=== PATIENT | female | born 1985 | race Caucasian/White ===

== ENCOUNTER 2021-09-03 15:49 | Inpatient (IN) ==
[2021-09-03] MEDS ORDERED: LABETALOL HCL 100 MG TAB PO STA (15:59)
[2021-09-03 16:22] LABS: Hematocrit (blood only) 37.9 % (37-47); Hemoglobin 12.9 g/dL (12.0-16.0); Mean Corpuscular Hemoglobin 30.6 pg (25-34); Mean Corpuscular Volume 89.8 fL (80-100); Mean Platelet Volume 10.8 fL (7.4-10.4); Platelet Count 295 K/uL (130-400); RDW Coefficient of Variation 13.3 % (11.5-14.5); RDW Standard Deviation 43.3 fL (36.4-46.3); Red Blood Count 4.22 M/uL (4.2-5.4); White Blood Count 10.65 K/uL (4.8-10.8)
[2021-09-03 16:41] LABS: Basophils # (auto) 0.02 K/uL (0-0.2); Basophils % (auto) 0.2 %; Eosinophils # (auto) 0.13 K/uL (0-0.5); Eosinophils % (auto) 1.2 %; Immature Granulocytes # (auto) 0.04 K/uL (0.00-0.02); Immature Granulocytes % (auto) 0.4 %; Lymphocytes # (auto) 2.52 K/uL (1.2-3.4); Lymphocytes % (auto) 23.7 %; Monocytes # (auto) 0.89 K/uL (0.11-0.59); Monocytes % (auto) 8.4 %; Neutrophils # (auto) 7.05 K/uL (1.4-6.5); Neutrophils % (auto) 66.1 %
[2021-09-03 17:02] LABS: Albumin Globulin Ratio 1.2 (0.9-2); Albumin Level 3.4 gm/dl (3.4-5.0); BUN Creatinine Ratio 14.3 (10-20); Bilirubin,Total 0.4 mg/dl (0.2-1.0); Calcium 8.8 mg/dl (8.5-10.1); Creatinine Clr Calc Pharmacy 140.3 ml/min; Est GFR (African American) 128.3 ml/min; Est GFR (Non-African American) 110.7 ml/min; Globulin 2.8 gm/dl (2.5-4.0); Potassium 3.8 mmol/L (3.5-5.1); Total Protein 6.2 gm/dl (6.0-8.3)
--- NOTE | 2021-09-03 17:33 | History & Physical Report ---
Date of Service September 03, 2021 Assessment & Plan (1) Obesity: (2) Gestational diabetes requiring insulin: (3) Elevated blood pressure complicating in second trimester, antepartum: Plan: 36-year-old -0-1-2 at 37 weeks and 4 days of gestation presenting with elevated blood pressures, initially in severe range, no protein, normal labs and asymptomatic, heart rate reassuring, Cervix unfavorable, GBS positive, Discussed the findings and recommended induction of labor at term due to blood pressures in severe ranges responded to oral labetalol, patient understands and agrees with plan. Plan to admit, monitor blood pressures closely, antihypertensives, magnesium seizure prophylaxis if needed, Cervidil for cervical ripening, penicillin for GBS, All questions were answered. History of Present Illness Chief Complaint: Sent from office for elevated BP Primary Care Provider: Nicole Pedraza MD A 36-year-old -0-1-2 at 37 weeks and 4 days of gestation who was in the office for routine NST tests for gestational diabetes, on insulin. Her blood pressure was 158/90 and her urine showed no protein. She was asymptomatic and was sent here for further blood pressure checks and blood work. She denies headache, change in her vision, nausea vomiting, epigastric or right upper quadrant pain, chest pain or shortness of breath, leg pain. She denies contractions, leakage of fluid or vaginal bleeding. She reports good movements. Her has been complicated by, 1. AMA, 2. Obesity during , 3. GDM A2, 4. Elevated blood pressures, 5. GBS+ Upon presentation here she was about 10 minutes and blood pressures were taken. There were elevated severe range 170s over 100s but she was asymptomatic. She was given 1 dose of oral 100 milligrams of labetalol her blood pressures came down to 150s over 90s. Her labs are within normal limits including platelets count, liver enzymes and creatinine. Allergies Allergy/AdvReac Type Severity Reaction Status Date / Time No Known Allergies Allergy Verified 01/18/20 10:29 Home Medications Medication Instructions Recorded Confirmed Type fluticasone propionate 50 1 spray INTRANASAL DAILY 01/17/20 01/18/20 History mcg/actuation nasal spray,suspension (Flonase Allergy Relief) ibuprofen 600 mg tablet 600 mg PO Q6H #30 tab 01/18/20 09/03/21 Rx aspirin 09/03/21 History insulin detemir U-100 100 unit/mL 20 unit SUBCUT DAILY 09/03/21 09/03/21 History (3 mL) subcutaneous pen [id number] 1 mg tab PO 09/03/21 History tablet Patient History Medical History Anxiety hx Chronic back pain Degenerative disc disease Depression hx Kidney stone Obesity Seasonal allergies Spinal stenosis Surgical History History of lithotripsy History of tooth extraction WISDOM TEETH S/P LASIK surgery of both eyes Family History Grandfather Family history of diabetes mellitus PATERNAL Grandmother Family history of diabetes mellitus PATERNAL Social History Smoking Status: Former smoker Second Hand Exposure: No; Hx Alcohol Use: Yes Alcohol type: beer, wine and hard liquor Hx Substance Use: No Preferred Language: Greek Communication Ability: Effective Oven Attendant Required: No Beliefs That Will Affect Care: None marital status: Single Current Living Situation: Significant Other Current Living Situation Comment: Lives at home with significant other and 2 children Other Information That Helps Us Care for You: No Feels Safe at Home: Yes Safety Concerns: Feels Safe At This Time Assistive Devices: None OB History Full-term 'sX2, children are 14 and 12 years old. 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 Review of Systems as per Subjective / HPI Physical Exam Constitutional: WD/WN, vitals as above well developed, well nourished and + obese Is not in acute distress. Gastrointestinal (Abdomen): normal bowel sounds, soft, nontender, no hepatosplenomegaly Inspection/Auscultation: + abdomen distended (Gravid, no epigastric or right upper quadrant tenderness) Genitourinary: OB Exam Abdomen: + vertex (Confirmed with bedside ultrasound) Manual OB Exam: + cervical dilation 1 cm, + cervical effacement 30% and + station high OB Exam Monitor Tracing: + external uterine monitor used and + category I Results & Data ([facility]) Vital Signs (Past 12 Hours) Vital Signs Temp Pulse Resp BP 09/03/21 17:22 100 H 158/90 H 09/03/21 17:07 94 H 158/82 H 09/03/21 16:53 91 H 173/84 H 09/03/21 16:22 96 H 172/85 H 09/03/21 16:10 36.6 C 98 H 18 179/101 H 09/03/21 16:07 98 H 179/101 H 09/03/21 15:53 99 H 179/98 H Laboratory Results Lab Results 09/03/21 09/03/21 Range/Units 16:10 16:11 WBC 10.65 (4.8-10.8) K/uL RBC 4.22 (4.2-5.4) M/uL Hgb 12.9 (12.0-16.0) g/dL Hct 37.9 (37-47) % MCV 89.8 (80-100) fL MCH 30.6 (25-34) pg MCHC 34.0 (32-36) g/dL RDW Std Deviation 43.3 (36.4-46.3) fL RDW Coeff of Sissy 13.3 (11.5-14.5) % Plt Count 295 (130-400) K/uL MPV 10.8 H (7.4-10.4) fL Immature Gran % (Auto) 0.4 % Neut % (Auto) 66.1 % Lymph % (Auto) 23.7 % [place] % (Auto) 8.4 % Eos % (Auto) 1.2 % Baso % (Auto) 0.2 % Neut # (Auto) 7.05 H (1.4-6.5) K/uL Lymph # (Auto) 2.52 (1.2-3.4) K/uL [place] # (Auto) 0.89 H (0.11-0.59) K/uL Eos # (Auto) 0.13 (0-0.5) K/uL Baso # (Auto) 0.02 (0-0.2) K/uL Immature Gran # (Auto) 0.04 H (0.00-0.02) K/uL Sodium 134 L (136-145) mmol/L Potassium 3.8 (3.5-5.1) mmol/L Chloride 107 (98-107) mmol/L Carbon Dioxide 20 L (21-32) mmol/L Anion Gap 7 (3-11) BUN 10 (6-23) mg/dl Creatinine 0.70 (0.6-1.2) mg/dl Est Cr Clr Drug Dosing 140.3 ml/min Est GFR ( Amer) 128.3 ml/min Est GFR (Non-Af Amer) 110.7 ml/min BUN/Creatinine Ratio 14.3 (10-20) Glucose 125 H (70-99(Fasting)) mg/dl Calcium 8.8 (8.5-10.1) mg/dl Total Bilirubin 0.4 (0.2-1.0) mg/dl AST 16 (13-39) U/L ALT 14 (7-52) U/L Alkaline Phosphatase 85 (34-104) U/L Total Protein 6.2 (6.0-8.3) gm/dl Albumin 3.4 (3.4-5.0) gm/dl Globulin 2.8 (2.5-4.0) gm/dl Albumin/Globulin Ratio 1.2 (0.9-2)
[2021-09-03 17:43] LABS: Appearance Urine Cloudy (Clear); Bacteria Urine Automated Negative (Negative); Bilirubin Urine Negative (Negative); Blood Urine Negative (Negative); Color Urine Yellow; Epithelial Cell Urine Auto >30 /lpf (0-5); Glucose Urine UA Trace (Negative); Ketones Urine Negative (Negative); Leukocyte Esterase Urine 1+ (Negative); Nitrite Urine Negative (Negative); Protein Urine Negative (Negative); RBC Urine Automated 0-4 /hpf (0-4); Specific Gravity Urine 1.021 (1.000-1.030); Urobilinogen Urine Negative (Negative); WBC Urine Automated >30 /hpf (0-5)
[2021-09-03] MEDS ORDERED: PENICILLIN G POTASSIUM 6 MU in DEXTROSE 5% 250 ML IV STA (17:52)
[2021-09-03] MEDS ORDERED: DINOPROSTONE 10 MG INSERT PV ONE (17:52)
[2021-09-03] MEDS ORDERED: OXYTOCIN 30 UNITS/500 ML BAG IV PRN (17:52)
[2021-09-03] MEDS ORDERED: BUTORPHANOL TARTRATE 1 MG/ML VIAL IV PRN (18:03)
[2021-09-03] MEDS: LACTATED RINGER'S 1,000 ML IV PRN (18:31)
[2021-09-03] MEDS: NIFEdipine EXTENDED REL 30 MG TABCR PO SCH (19:29)
--- NOTE | 2021-09-03 20:03 | Obstetrical Progress Note ---
Date of Service September 03, 2021 Assessment & Plan Admission and Anticipated Discharge Date Admission Date: September 03, 2021 Subjective Patient is admitted for induction of labor tonight. She feels well no complaint s. She ate her dinner and ready for Cervidil. Cervidil is placed in posterior fornix, heart rate category 1. Continue to monitor closely. Anesthesia consultation was made and Dr. Underwood is talking to her about epidural options. Results & Data ([facility]) Vital Signs (Past 12 Hours) Vital Signs Temp Pulse Resp BP 09/03/21 19:03 36.8 C 18 09/03/21 19:01 83 156/83 H 09/03/21 18:52 80 146/80 H 09/03/21 18:38 85 153/82 H 09/03/21 18:07 94 H 155/84 H 09/03/21 17:52 95 H 148/84 H 09/03/21 17:37 99 H 150/82 H 09/03/21 17:22 100 H 158/90 H 09/03/21 17:07 94 H 158/82 H 09/03/21 16:53 91 H 173/84 H 09/03/21 16:22 96 H 172/85 H 09/03/21 16:10 36.6 C 98 H 18 179/101 H 09/03/21 16:07 98 H 179/101 H 09/03/21 15:53 99 H 179/98 H
[2021-09-03] MEDS: ACETAMINOPHEN 325 MG TAB PO PRN (21:42)
[2021-09-03] MEDS ORDERED: CARBOHYDRATES FOR HYPOGLYCEMIA PO PRN (21:45)
[2021-09-03] MEDS ORDERED: GLUCOSE 40% GEL 15 GM TUBE PO PRN (21:45)
[2021-09-03] MEDS ORDERED: GLUCOSE 10 TABS/TUBE PO PRN (21:45)
[2021-09-03] MEDS ORDERED: GLUCAGON FOR INJ 1 MG VIAL IM PRN (21:45)
[2021-09-03] MEDS ORDERED: DEXTROSE 50% 50 ML SYRINGE IV PRN (21:45)
[2021-09-04] MEDS ORDERED: BUTORPHANOL TARTRATE 1 MG/ML VIAL IV PRN (00:26)
[2021-09-04] MEDS ORDERED: diphenhydrAMINE Capsule 25 MG CAP PO PRN (00:26)
[2021-09-04] MEDS: INSULIN HUMAN REGULAR SC SCH ×4 (07:26→21:33)
[2021-09-04] MEDS: LACTATED RINGER'S 1,000 ML IV PRN ×4 (07:47→22:32)
[2021-09-04] MEDS: LABETALOL HCL 100 MG TAB PO SCH ×2 (09:09→21:32)
[2021-09-04] MEDS ORDERED: OXYTOCIN 30 UNITS/500 ML BAG IV PRN (09:29)
--- NOTE | 2021-09-04 09:29 | Labor Progress Brief Note ---
Date of Service September 04, 2021 Assessment & Plan (1) Gestational diabetes requiring insulin: Plan: Pt doing well cervidil removed FHR; CAT1 Ctx; 2-4min VE; 1-2/50/-2 will start Pitocin augmentation Admission and Anticipated Discharge Date Admission Date: September 03, 2021 Results & Data ([facility]) Vital Signs (Past 12 Hours) Vital Signs Temp Pulse Resp BP 09/04/21 09:09 75 150/75 H 09/04/21 07:10 71 145/77 H 09/04/21 07:09 36.7 C 20 09/04/21 04:48 75 159/85 H 09/04/21 04:37 66 162/80 H 09/04/21 04:34 37.6 C H 09/04/21 02:02 36.8 C 09/04/21 02:00 82 134/63 09/03/21 23:57 71 139/65 09/03/21 22:07 36.5 C 75 157/84 H
[2021-09-04] MEDS ORDERED: SODIUM CHLORIDE 0.9% INJ 10 ML VIAL ONE (13:36)
[2021-09-04] MEDS ORDERED: fentaNYL citrate 100 MCG/2 ML VIAL ONE (13:36)
[2021-09-04] MEDS ORDERED: ePHEDrine sulfate 50 MG/ML AMP ONE (13:36)
[2021-09-04] MEDS ORDERED: BUPIVACAINE 0.25% 30 ML VIAL ONE (13:36)
[2021-09-04] MEDS ORDERED: fentaNYL 2MCG/ML ROPIVACAINE 1.25MG/ML 100 ML BAG EPI ONE (13:37)
[2021-09-04] MEDS ORDERED: ePHEDrine sulfate 50 MG/ML AMP IV PRN (14:16)
[2021-09-04] MEDS ORDERED: fentaNYL 2MCG/ML ROPIVACAINE 1.25MG/ML 100 ML BAG EPI PRN (14:16)
[2021-09-04] MEDS ORDERED: ONDANSETRON INJ 2 MG/ML 2 ML VIAL IV PRN ×2 (14:16→20:43)
[2021-09-04] MEDS ORDERED: NALOXONE HCL 0.4 MG/1 ML VIAL/CARP IV PRN (14:16)
[2021-09-04] MEDS ORDERED: diphenhydrAMINE 50 MG/ML VIAL IV PRN (14:16)
[2021-09-04] MEDS ORDERED: NALOXONE HCL 1 MG in SODIUM CHLORIDE 0.9% 1000ML 1,000 ML IV PRN (14:16)
[2021-09-04] MEDS ORDERED: NALBUPHINE HCL INJ 10 MG/ML AMP IV PRN (14:16)
--- NOTE | 2021-09-04 14:16 | Anesthesiology Consultation ---
Date of Service September 04, 2021 Assessment & Plan ASA ASA3 Proposed Anesthesia Anesthesia Type: Labor Epidural Risk / Benefits Reviewed With: PT / POA / Parent / Guardian, Accepts Plan and Informed Consent Obtained History Height/Weight Height: 5 ft 6 in Weight: 112.945 kg Allergies Allergy/AdvReac Type Severity Reaction Status Date / Time No Known Allergies Allergy Verified 01/18/20 10:29 Medications Home Medications Medication Instructions Recorded Confirmed Last Taken fluticasone propionate 50 1 spray INTRANASAL DAILY 01/17/20 01/18/20 01/18/20 08:00 mcg/actuation nasal spray,suspension (Flonase Allergy Relief) ibuprofen 600 mg tablet 600 mg PO Q6H #30 tab 01/18/20 09/03/21 09/03/21 09:00 aspirin 09/03/21 09/03/21 09:00 insulin detemir U-100 100 unit/mL 20 unit SUBCUT DAILY 09/03/21 09/03/21 09/03/21 09:00 (3 mL) subcutaneous pen plyarepb-[id number]-Ve-FA 1 mg tab PO 09/03/21 09/03/21 09:00 tablet Active Medications Generic Name Dose Route Start Last Admin Trade Name Freq PRN Reason Stop Dose Admin Acetaminophen 650 mg 09/03/21 21:29 09/03/21 21:42 Acetaminophen 325 Mg Tab PO 10/03/21 21:28 650 mg Q4H PRN Administration Headache Butorphanol Tartrate 1 mg 09/04/21 00:26 09/04/21 12:41 Butorphanol Tartrate 1 Mg/Ml Vial IV 10/03/21 18:02 1 mg Q2HWA PRN Administration Pain Diphenhydramine HCl 25 mg 09/04/21 00:26 09/04/21 04:52 Diphenhydramine Capsule 25 Mg Cap PO 10/04/21 00:25 25 mg Q6 PRN Administration Insomnia Lactated Ringer's 1,000 mls @ 125 mls/hr 09/03/21 17:52 09/04/21 14:20 Lr IV 09/05/21 17:51 125 mls/hr .Q8H PRN Administration L&D Protocol Protocol Oxytocin 30 units in 500 mls @ 10 mls/hr 09/04/21 09:29 09/04/21 13:00 Pitocin IV 09/06/21 09:28 0.6 units/hr .Q24H PRN 10 mls/hr Labor Induction/Augmentation Titration Protocol 0.6 UNITS/HR Insulin Human Regular 0 units 09/04/21 07:30 09/04/21 12:07 Insulin Human Regular SC 10/04/21 07:29 Not Given ACHS PAZ Labetalol HCl 100 mg 09/04/21 09:00 09/04/21 09:09 Labetalol Hcl 100 Mg Tab PO 10/04/21 08:59 100 mg BID PAZ Administration Nifedipine 30 mg 09/03/21 20:00 09/03/21 19:29 Nifedipine Extended Rel 30 Mg Tabcr PO 10/03/21 19:59 30 mg HS PAZ Administration Past Medical History Medical History Anxiety hx Chronic back pain Degenerative disc disease Depression hx Kidney stone Obesity Seasonal allergies Spinal stenosis Exercise / Class Metabolic Activity II 4-5 Yardwork/Stairs/Walk up hill Past Family History Family History Grandfather Family history of diabetes mellitus PATERNAL Grandmother Family history of diabetes mellitus PATERNAL Past Surgical History Surgical History History of lithotripsy History of tooth extraction WISDOM TEETH S/P LASIK surgery of both eyes Past Anesthesia History No Hx of Anesthesia Complications and No Family Hx of Anesthesia Complications History of PONV No Hx of PONV and No Hx of Motion Sickness Social History Smoking Status: Former smoker tobacco type: cigarettes Hx Alcohol Use: Yes Alcohol type: beer, wine and hard liquor alcohol intake frequency: holidays/special occasions only Hx Substance Use: No substance use type: does not use Review of Systems denies fever/cough/ colds/ chest pain/ SOB/ ANGEL denies ANGEL Physical Exam Vital Signs Last Vital Signs Temp 36.7 C 09/04/21 11:00 Pulse 64 09/04/21 15:23 Resp 20 09/04/21 12:01 BP 127/71 09/04/21 15:23 Pulse Ox 96 09/04/21 15:22 ENMT Mouth: no TMJ abnormality and no dentition abnormality Thyromental Distance: > or= 3.5 Finger Breadths Mallampati Class: II Neck neck extension not limited Respiratory normal respiratory effort; no respiratory distress Auscultation: lungs clear to auscultation bilaterally Cardiovascular Rate/Rhythm: regular rate and regular rhythm Neurologic moves all extremities Psychiatric Orientation: alert and oriented x 3 Testing Laboratory Results 09/03/21 16:11 09/03/21 16:10 Urine Color Yellow 09/03/21 17:00 Urine Appearance Cloudy (Clear) A 09/03/21 17:00 Urine pH 6.0 (4.5-7.5) 09/03/21 17:00 Ur Specific [place] 1.021 (1.000-1.030) 09/03/21 17:00 Urine Protein Negative (Negative) 09/03/21 17:00 Urine Glucose (UA) Trace (Negative) H 09/03/21 17:00 Urine Ketones Negative (Negative) 09/03/21 17:00 Urine Nitrite Negative (Negative) 09/03/21 17:00 Ur Leukocyte Esterase 1+ (Negative) H 09/03/21 17:00 Urine WBC (Auto) >30 /hpf (0-5) H 09/03/21 17:00 Urine RBC (Auto) 0-4 /hpf (0-4) 09/03/21 17:00 U Hyaline Cast (Auto) 1-5 /lpf (0-5) 09/03/21 17:00 U Epithel Cells (Auto) >30 /lpf (0-5) H 09/03/21 17:00 Urine Bacteria (Auto) Negative (Negative) 09/03/21 17:00 09/04/21 09/04/21 09/04/21 15:21 11:33 07:14 POC Glucose 90 100 H 104 H
[2021-09-04] MEDS: PENICILLIN G POTASSIUM 3 MU in DEXTROSE 5% 100 ML IV PRN ×2 (19:31→23:25)
[2021-09-04] MEDS: ACETAMINOPHEN 325 MG TAB PO PRN (19:32)
[2021-09-04] MEDS ORDERED: PHARMACY GLYCEMIC MGMT CONSULT PRN (19:36)
[2021-09-04] MEDS ORDERED: DEXTROSE 50% 50 ML SYRINGE IV PRN (19:56)
[2021-09-04] MEDS ORDERED: SODIUM CHLORIDE 0.9% 1000ML 1,000 ML IV PRN (19:56)
[2021-09-04] MEDS ORDERED: INSULIN REGULAR 250 UNITS in SODIUM CHLORIDE 0.9% 247.5 ML IV PRN (19:56)
[2021-09-04] MEDS ORDERED: DEXTROSE 5% 1,000 ML IV PRN (19:56)
--- NOTE | 2021-09-04 21:27 | Labor Progress Brief Note ---
Date of Service September 04, 2021 Assessment & Plan (1) Elevated blood pressure complicating in second trimester, ante : Plan: FHR ; CAT1 CTx 2-4mins VE 2-3/75/-2 Pit; 16mu Attempt to AROM unsuccessful with amnio hook and FSE Bedside sono shows Vt presentation with moderate fluid Plan Perez cath placed in bladder continue with Pitocin augmentation attempt AROM again in 2 hrs Admission and Anticipated Discharge Date Admission Date: September 03, 2021 Results & Data ([facility]) Vital Signs (Past 12 Hours) Vital Signs Temp Pulse Resp BP Pulse Ox 09/04/21 21:22 79 97 09/04/21 21:21 68 140/79 09/04/21 21:17 78 97 09/04/21 21:12 72 98 09/04/21 21:07 73 99 09/04/21 21:02 72 98 09/04/21 20:57 71 98 09/04/21 20:52 63 161/80 H 97 09/04/21 20:47 66 97 09/04/21 20:42 67 98 09/04/21 20:37 80 98 09/04/21 20:36 74 164/79 H 09/04/21 20:32 70 98 09/04/21 20:30 18 09/04/21 20:27 66 96 09/04/21 20:22 63 152/72 H 98 09/04/21 20:17 63 96 09/04/21 20:12 65 97 09/04/21 20:08 64 159/76 H 09/04/21 20:07 65 98 09/04/21 20:02 62 98 09/04/21 19:57 64 97 09/04/21 19:52 66 150/76 H 97 09/04/21 19:47 68 99 09/04/21 19:42 74 99 09/04/21 19:37 75 98 09/04/21 19:35 71 144/70 H 09/04/21 19:32 83 99 09/04/21 19:30 18 09/04/21 19:27 71 98 09/04/21 19:22 75 99 09/04/21 19:19 36.9 C 18 09/04/21 19:17 73 98 09/04/21 19:12 76 98 09/04/21 19:10 36.9 C 18 09/04/21 19:07 78 99 09/04/21 19:05 77 144/72 H 09/04/21 19:02 65 97 09/04/21 18:57 64 97 09/04/21 18:52 65 96 09/04/21 18:47 62 97 09/04/21 18:42 77 96 09/04/21 18:37 65 97 09/04/21 18:34 64 145/68 H 09/04/21 18:32 65 98 09/04/21 18:27 68 98 09/04/21 18:22 78 97 09/04/21 18:17 65 98 09/04/21 18:12 71 99 09/04/21 18:07 63 98 09/04/21 18:06 67 140/68 09/04/21 18:02 64 20 97 09/04/21 17:57 75 99 09/04/21 17:52 66 99 09/04/21 17:47 77 99 09/04/21 17:42 73 99 09/04/21 17:37 68 99 09/04/21 17:36 76 85 L 09/04/21 17:35 65 140/67 09/04/21 17:32 63 99 09/04/21 17:27 62 97 09/04/21 17:22 62 97 09/04/21 17:17 64 98 09/04/21 17:12 73 100 09/04/21 17:07 77 99 09/04/21 17:02 65 20 99 09/04/21 16:57 67 98 09/04/21 16:53 72 143/70 H 09/04/21 16:52 75 100 09/04/21 16:47 68 99 09/04/21 16:42 78 100 09/04/21 16:39 70 144/69 H 09/04/21 16:37 68 99 09/04/21 16:32 75 98 09/04/21 16:27 73 97 09/04/21 16:23 69 124/63 09/04/21 16:22 78 99 09/04/21 16:17 59 L 96 09/04/21 16:12 67 98 09/04/21 16:08 76 125/66 09/04/21 16:07 75 99 09/04/21 16:02 64 96 09/04/21 15:59 70 93 09/04/21 15:57 72 97 09/04/21 15:54 69 122/66 09/04/21 15:52 69 97 09/04/21 15:47 61 97 09/04/21 15:42 75 97 09/04/21 15:39 62 118/64 09/04/21 15:37 64 97 09/04/21 15:32 64 96 09/04/21 15:27 60 96 09/04/21 15:23 64 127/71 09/04/21 15:22 68 96 09/04/21 15:17 61 97 09/04/21 15:12 63 97 09/04/21 15:07 63 121/69 97 09/04/21 15:02 64 126/70 96 09/04/21 14:57 72 123/66 96 09/04/21 14:52 69 99 09/04/21 14:51 82 146/75 H 09/04/21 14:49 77 135/72 09/04/21 14:47 80 143/72 H 99 09/04/21 14:45 82 149/76 H 09/04/21 14:43 82 152/76 H 09/04/21 14:42 82 99 09/04/21 14:41 76 157/78 H 09/04/21 14:39 80 165/82 H 09/04/21 14:37 83 99 09/04/21 14:06 71 98 09/04/21 14:01 80 98 09/04/21 13:56 77 98 09/04/21 13:51 72 99 09/04/21 13:03 66 20 136/63 09/04/21 12:01 82 20 145/82 H 09/04/21 11:00 36.7 C 70 20 157/76 H
[2021-09-04] MEDS: NIFEdipine EXTENDED REL 30 MG TABCR PO SCH (21:32)
[2021-09-04] MEDS: INSULIN DETEMIR FLEXPEN/FLEX TOUCH 100 UNITS/ML 3ML SC SCH (21:33)
--- NOTE | 2021-09-04 23:51 | Labor Progress Brief Note ---
Date of Service September 04, 2021 Assessment & Plan (1) Elevated blood pressure complicating in second trimester, ante : Plan: Pt doing well FHR; CAT1 Ctx 2-4mins Pit; 20mu VE 3.75/-2 AROM with FSE- clear fluid continue Pitocin argentation Admission and Anticipated Discharge Date Admission Date: September 03, 2021 Results & Data ([facility]) Vital Signs (Past 12 Hours) Vital Signs Temp Pulse Resp BP Pulse Ox 09/04/21 23:47 81 99 09/04/21 23:42 64 99 09/04/21 23:37 68 97 09/04/21 23:35 72 159/87 H 09/04/21 23:32 68 98 09/04/21 23:27 80 98 09/04/21 23:22 100 H 97 09/04/21 23:18 64 155/75 H 09/04/21 23:17 67 95 09/04/21 23:12 65 96 09/04/21 23:07 73 97 09/04/21 23:05 61 152/72 H 09/04/21 23:02 67 96 09/04/21 22:57 70 98 09/04/21 22:52 74 98 09/04/21 22:48 75 158/79 H 09/04/21 22:47 72 97 09/04/21 22:42 73 97 09/04/21 22:37 71 97 09/04/21 22:35 36.8 C 09/04/21 22:33 75 152/75 H 09/04/21 22:32 77 98 09/04/21 22:30 18 09/04/21 22:27 66 96 09/04/21 22:22 64 96 09/04/21 22:18 72 150/71 H 09/04/21 22:17 63 97 09/04/21 22:12 66 97 09/04/21 22:07 69 97 09/04/21 22:03 66 156/76 H 09/04/21 22:02 67 97 09/04/21 22:00 18 09/04/21 21:57 69 97 09/04/21 21:52 67 97 09/04/21 21:49 65 154/74 H 09/04/21 21:47 74 98 09/04/21 21:42 75 98 09/04/21 21:37 76 98 03/08/22 21:32 73 158/75 H 96 09/04/21 21:30 18 09/04/21 21:27 64 97 09/04/21 21:22 79 97 09/04/21 21:21 68 140/79 09/04/21 21:17 78 97 09/04/21 21:12 72 98 09/04/21 21:07 73 99 09/04/21 21:02 72 98 09/04/21 21:00 18 09/04/21 20:57 71 98 09/04/21 20:52 63 161/80 H 97 09/04/21 20:47 66 97 09/04/21 20:42 67 98 09/04/21 20:37 80 98 09/04/21 20:36 74 164/79 H 09/04/21 20:32 70 98 09/04/21 20:30 18 09/04/21 20:27 66 96 09/04/21 20:22 63 152/72 H 98 09/04/21 20:17 63 96 09/04/21 20:12 65 97 09/04/21 20:08 64 159/76 H 09/04/21 20:07 65 98 09/04/21 20:02 62 98 09/04/21 19:57 64 97 09/04/21 19:52 66 150/76 H 97 09/04/21 19:47 68 99 09/04/21 19:42 74 99 09/04/21 19:37 75 98 09/04/21 19:35 71 144/70 H 09/04/21 19:32 83 99 09/04/21 19:30 18 09/04/21 19:27 71 98 09/04/21 19:22 75 99 09/04/21 19:19 36.9 C 18 09/04/21 19:17 73 98 09/04/21 19:12 76 98 09/04/21 19:10 36.9 C 18 09/04/21 19:07 78 99 09/04/21 19:05 77 144/72 H 09/04/21 19:02 65 97 09/04/21 18:57 64 97 09/04/21 18:52 65 96 09/04/21 18:47 62 97 09/04/21 18:42 77 96 09/04/21 18:37 65 97 09/04/21 18:34 64 145/68 H 09/04/21 18:32 65 98 09/04/21 18:27 68 98 09/04/21 18:22 78 97 09/04/21 18:17 65 98 09/04/21 18:12 71 99 09/04/21 18:07 63 98 09/04/21 18:06 67 140/68 09/04/21 18:02 64 20 97 09/04/21 17:57 75 99 09/04/21 17:52 66 99 09/04/21 17:47 77 99 09/04/21 17:42 73 99 09/04/21 17:37 68 99 09/04/21 17:36 76 85 L 09/04/21 17:35 65 140/67 09/04/21 17:32 63 99 09/04/21 17:27 62 97 09/04/21 17:22 62 97 09/04/21 17:17 64 98 09/04/21 17:12 73 100 09/04/21 17:07 77 99 09/04/21 17:02 65 20 99 09/04/21 16:57 67 98 09/04/21 16:53 72 143/70 H 09/04/21 16:52 75 100 09/04/21 16:47 68 99 09/04/21 16:42 78 100 09/04/21 16:39 70 144/69 H 09/04/21 16:37 68 99 09/04/21 16:32 75 98 09/04/21 16:27 73 97 09/04/21 16:23 69 124/63 09/04/21 16:22 78 99 09/04/21 16:17 59 L 96 09/04/21 16:12 67 98 09/04/21 16:08 76 125/66 09/04/21 16:07 75 99 09/04/21 16:02 64 96 09/04/21 15:59 70 93 09/04/21 15:57 72 97 09/04/21 15:54 69 122/66 09/04/21 15:52 69 97 09/04/21 15:47 61 97 09/04/21 15:42 75 97 09/04/21 15:39 62 118/64 09/04/21 15:37 64 97 09/04/21 15:32 64 96 09/04/21 15:27 60 96 09/04/21 15:23 64 127/71 09/04/21 15:22 68 96 09/04/21 15:17 61 97 09/04/21 15:12 63 97 09/04/21 15:07 63 121/69 97 09/04/21 15:02 64 126/70 96 09/04/21 14:57 72 123/66 96 09/04/21 14:52 69 99 09/04/21 14:51 82 146/75 H 09/04/21 14:49 77 135/72 09/04/21 14:47 80 143/72 H 99 09/04/21 14:45 82 149/76 H 09/04/21 14:43 82 152/76 H 09/04/21 14:42 82 99 09/04/21 14:41 76 157/78 H 09/04/21 14:39 80 165/82 H 09/04/21 14:37 83 99 09/04/21 14:06 71 98 09/04/21 14:01 80 98 09/04/21 13:56 77 98 09/04/21 13:51 72 99 09/04/21 13:03 66 20 136/63 09/04/21 12:01 82 20 145/82 H
[2021-09-05] MEDS ORDERED: HYDROCORTISONE ACETATE 25 MG SUPP PR PRN (01:21)
[2021-09-05] MEDS ORDERED: bisacodyL 10 MG SUPP PR PRN (01:21)
[2021-09-05] MEDS ORDERED: miSOPROStoL 200 MCG TAB PR ONE (01:21)
[2021-09-05] MEDS ORDERED: BENZOCAINE 20% AER SPR 82.5 GM CAN EXT PRN (01:21)
[2021-09-05] MEDS ORDERED: DIPHTHERIA/TETANUS/PERTUSSIS 0.5 ML SYR/VIAL IM ONE (01:21)
[2021-09-05] MEDS ORDERED: OXYTOCIN 30 UNITS/500 ML BAG IV PRN (01:21)
[2021-09-05] MEDS: ACETAMINOPHEN 325 MG TAB PO PRN ×2 (02:21→08:13)
[2021-09-05 02:59] LABS: Base Excess Cord Venous Blood -2.5 mEq/L (-7.7-1.9); Cord Venous Blood HCO3 24 mmol/L (18.4-26.8); Cord Venous Blood PCO2 47 mmHg (30.4-57.2); Cord Venous Blood PO2 31 mmHg (14.1-43.3); Cord Venous Blood pH 7.32 (7.20-7.44)
[2021-09-05 03:00] LABS: Base Excess Cord Arterial Bld -2.6 mEq/L (-9-1.8); CO2 Cord Arterial Blood 58 mmHg (39.1-73.5); HCO3 Cord Arterial Blood 26 mmol/L (19.7-28.5); Oxygen Sat Cord Arterial Blood < 60.0 % (<60); PO2 Cord Arterial Blood 25 mmHg (4.1-31.7); pH Cord Arterial Blood 7.26 (7.1-7.38)
--- NOTE | 2021-09-05 07:27 | Anesthesia Procedure Note ---
Date of Service September 05, 2021 Anesthesia Post Epidural Note Vital Signs Vital Signs: Temp Pulse Resp BP Pulse Ox 36.8 C 93 H 18 143/75 H 98 09/05/21 03:15 09/05/21 03:16 09/05/21 03:15 09/05/21 03:16 09/05/21 01:07 Pain Intensity Bilateral Head: Pain Intensity: 5 Notes Mental Status: alert / awake / arousable Nausea / Vomiting: adequately controlled Pain: adequately controlled Airway Patency, RR, SpO2: stable & adequate BP & HR: stable & adequate Hydration State: stable & adequate Neuraxial Anesthesia: was administered and sensory block is resolving Anesthetic Complications: no major complications apparent and Pt Satisfied with anesthetic care Epidural: Removed without complications and With tip intact
[2021-09-05] MEDS: PRENATAL VITAMIN 1 TAB PO SCH (08:13)
[2021-09-05] MEDS: DOCUSATE SODIUM 100 MG CAP PO SCH ×2 (08:13→20:11)
--- NOTE | 2021-09-05 08:49 | Delivery Summary ---
The patient delivered a live in cephalic presentation. There was one nuchal cord, which was e asily reduced. was delivered. Delayed cord clamp was performed after 2 minutes. Cord blood and cord gases were obtained. Placenta was spontaneously delivered. Inspection of the placenta show s a normal looking placenta with 3-vessel cord. Placenta was sent to pathology for pathological anal ysis because the patient's was complicated with gestational diabetes, which was treated wit h insulin, as well as gestational hypertension. Estimated blood loss was 450 mL. The patient's perineum showed no laceration or tears. Rectal exam s howed good sphincter tone. All instruments were removed from the vagina and accounted for x2 including sponges and retractors. The patient's weight and Apgars are in the pediatric record. Mother and baby are stable in recovery. Job ID: [id number]
[2021-09-05] MEDS: LABETALOL HCL 100 MG TAB PO SCH ×2 (09:04→20:11)
[2021-09-05] MEDS ORDERED: CALCIUM CARBONATE 500 MG CHEWABLE TAB PO PRN (15:04)
[2021-09-05] MEDS: IBUPROFEN 600 MG TAB PO PRN ×2 (15:13→20:11)
[2021-09-05] MEDS: NIFEdipine EXTENDED REL 30 MG TABCR PO SCH (20:27)
[2021-09-05] MEDS: INSULIN DETEMIR FLEXPEN/FLEX TOUCH 100 UNITS/ML 3ML SC SCH (21:17)
[2021-09-06] MEDS: IBUPROFEN 600 MG TAB PO PRN ×3 (00:14→09:07)
[2021-09-06 06:14] LABS: Hematocrit (blood only) 38.1 % (37-47); Hemoglobin 12.7 g/dL (12.0-16.0); Mean Corpuscular Hemoglobin 30.5 pg (25-34); Mean Corpuscular Hgb Conc 33.3 g/dL (32-36); Mean Corpuscular Volume 91.4 fL (80-100); Mean Platelet Volume 11.1 fL (7.4-10.4); Platelet Count 271 K/uL (130-400); RDW Coefficient of Variation 13.8 % (11.5-14.5); RDW Standard Deviation 45.4 fL (36.4-46.3); Red Blood Count 4.17 M/uL (4.2-5.4); White Blood Count 11.01 K/uL (4.8-10.8)
--- NOTE | 2021-09-06 07:57 | Obstetrical Progress Note ---
Date of Service September 06, 2021 Assessment & Plan Admission and Anticipated Discharge Date Admission Date: September 03, 2021 Subjective Patient is seen and examined. She feels well, no complaints. Desires d/c today. Ambulating without dizziness Voiding without difficulty Tolerating regular diet with out N&V Bleeding is minimal No fever/ chills/ CP/ SOB/ N&V/ Leg pain Breast feeding without problems Vital Signs Temp Pulse Pulse Resp BP BP BP 09/06/21 00:20 145/80 H 09/05/21 23:15 36.6 C 61 18 175/95 H 09/05/21 19:55 36.7 C 69 18 152/89 H 09/05/21 15:00 36.9 C 75 18 137/80 09/05/21 14:59 75 137/80 09/05/21 13:07 36.8 C 85 85 18 143/77 H 143/77 H 09/05/21 11:20 36.8 C 79 79 18 117/57 L 117/57 L Pulse Ox 09/06/21 00:20 09/05/21 23:15 09/05/21 19:55 98 09/05/21 15:00 09/05/21 14:59 09/05/21 13:07 09/05/21 11:20 Lab Results 09/03/21 09/03/21 09/03/21 Range/Units 16:10 16:11 17:00 WBC 10.65 (4.8-10.8) K/uL RBC 4.22 (4.2-5.4) M/uL Hgb 12.9 (12.0-16.0) g/dL Hct 37.9 (37-47) % MCV 89.8 (80-100) fL MCH 30.6 (25-34) pg MCHC 34.0 (32-36) g/dL RDW Std Deviation 43.3 (36.4-46.3) fL RDW Coeff of Sissy 13.3 (11.5-14.5) % Plt Count 295 (130-400) K/uL MPV 10.8 H (7.4-10.4) fL Immature Gran % (Auto) 0.4 % Neut % (Auto) 66.1 % Lymph % (Auto) 23.7 % [place] % (Auto) 8.4 % Eos % (Auto) 1.2 % Baso % (Auto) 0.2 % Neut # (Auto) 7.05 H (1.4-6.5) K/uL Lymph # (Auto) 2.52 (1.2-3.4) K/uL [place] # (Auto) 0.89 H (0.11-0.59) K/uL Eos # (Auto) 0.13 (0-0.5) K/uL Baso # (Auto) 0.02 (0-0.2) K/uL Immature Gran # (Auto) 0.04 H (0.00-0.02) K/uL Cord ABG pH (7.1-7.38) Cord ABG pCO2 (39.1-73.5) mmHg Cord ABG pO2 (4.1-31.7) mmHg Cord ABG HCO3 (19.7-28.5) mmol/L Cord ABG Base Excess (-9-1.8) mEq/L Cord ABG O2 Sat (<60) % Cord VBG pH (7.20-7.44) Cord VBG pCO2 (30.4-57.2) mmHg Cord VBG pO2 (14.1-43.3) mmHg Cord VBG HCO3 (18.4-26.8) mmol/L Cord VBG Base Excess (-7.7-1.9) mEq/L Cord VBG O2 Sat (<68) % Blood Gas Comments Sodium 134 L (136-145) mmol/L Potassium 3.8 (3.5-5.1) mmol/L Chloride 107 (98-107) mmol/L Carbon Dioxide 20 L (21-32) mmol/L Anion Gap 7 (3-11) BUN 10 (6-23) mg/dl Creatinine 0.70 (0.6-1.2) mg/dl Est Cr Clr Drug Dosing 140.3 ml/min Est GFR ( Amer) 128.3 ml/min Est GFR (Non-Af Amer) 110.7 ml/min BUN/Creatinine Ratio 14.3 (10-20) Glucose 125 H (70-99(Fasting)) mg/dl POC Glucose (70-99) mg/dl Calcium 8.8 (8.5-10.1) mg/dl Total Bilirubin 0.4 (0.2-1.0) mg/dl AST 16 (13-39) U/L ALT 14 (7-52) U/L Alkaline Phosphatase 85 (34-104) U/L Total Protein 6.2 (6.0-8.3) gm/dl Albumin 3.4 (3.4-5.0) gm/dl Globulin 2.8 (2.5-4.0) gm/dl Albumin/Globulin Ratio 1.2 (0.9-2) Urine Color Yellow Urine Appearance Cloudy A (Clear) Urine pH 6.0 (4.5-7.5) Ur Specific [place] 1.021 (1.000-1.030) Urine Protein Negative (Negative) Urine Glucose (UA) Trace H (Negative) Urine Ketones Negative (Negative) Urine Blood Negative (Negative) Urine Nitrite Negative (Negative) Urine Bilirubin Negative (Negative) Urine Urobilinogen Negative (Negative) Ur Leukocyte Esterase 1+ H (Negative) Urine WBC (Auto) >30 H (0-5) /hpf Urine RBC (Auto) 0-4 (0-4) /hpf U Hyaline Cast (Auto) 1-5 (0-5) /lpf U Epithel Cells (Auto) >30 H (0-5) /lpf Urine Bacteria (Auto) Negative (Negative) 09/03/21 09/04/21 09/04/21 Range/Units 22:04 07:14 11:33 WBC (4.8-10.8) K/uL RBC (4.2-5.4) M/uL Hgb (12.0-16.0) g/dL Hct (37-47) % MCV (80-100) fL MCH (25-34) pg MCHC (32-36) g/dL RDW Std Deviation (36.4-46.3) fL RDW Coeff of Sissy (11.5-14.5) % Plt Count (130-400) K/uL MPV (7.4-10.4) fL Immature Gran % (Auto) % Neut % (Auto) % Lymph % (Auto) % [place] % (Auto) % Eos % (Auto) % Baso % (Auto) % Neut # (Auto) (1.4-6.5) K/uL Lymph # (Auto) (1.2-3.4) K/uL [place] # (Auto) (0.11-0.59) K/uL Eos # (Auto) (0-0.5) K/uL Baso # (Auto) (0-0.2) K/uL Immature Gran # (Auto) (0.00-0.02) K/uL Cord ABG pH (7.1-7.38) Cord ABG pCO2 (39.1-73.5) mmHg Cord ABG pO2 (4.1-31.7) mmHg Cord ABG HCO3 (19.7-28.5) mmol/L Cord ABG Base Excess (-9-1.8) mEq/L Cord ABG O2 Sat (<60) % Cord VBG pH (7.20-7.44) Cord VBG pCO2 (30.4-57.2) mmHg Cord VBG pO2 (14.1-43.3) mmHg Cord VBG HCO3 (18.4-26.8) mmol/L Cord VBG Base Excess (-7.7-1.9) mEq/L Cord VBG O2 Sat (<68) % Blood Gas Comments Sodium (136-145) mmol/L Potassium (3.5-5.1) mmol/L Chloride (98-107) mmol/L Carbon Dioxide (21-32) mmol/L Anion Gap (3-11) BUN (6-23) mg/dl Creatinine (0.6-1.2) mg/dl Est Cr Clr Drug Dosing ml/min Est GFR ( Amer) ml/min Est GFR (Non-Af Amer) ml/min BUN/Creatinine Ratio (10-20) Glucose (70-99(Fasting)) mg/dl POC Glucose 109 H 104 H 100 H (70-99) mg/dl Calcium (8.5-10.1) mg/dl Total Bilirubin (0.2-1.0) mg/dl AST (13-39) U/L ALT (7-52) U/L Alkaline Phosphatase (34-104) U/L Total Protein (6.0-8.3) gm/dl Albumin (3.4-5.0) gm/dl Globulin (2.5-4.0) gm/dl Albumin/Globulin Ratio (0.9-2) Urine Color Urine Appearance (Clear) Urine pH (4.5-7.5) Ur Specific [place] (1.000-1.030) Urine Protein (Negative) Urine Glucose (UA) (Negative) Urine Ketones (Negative) Urine Blood (Negative) Urine Nitrite (Negative) Urine Bilirubin (Negative) Urine Urobilinogen (Negative) Ur Leukocyte Esterase (Negative) Urine WBC (Auto) (0-5) /hpf Urine RBC (Auto) (0-4) /hpf U Hyaline Cast (Auto) (0-5) /lpf U Epithel Cells (Auto) (0-5) /lpf Urine Bacteria (Auto) (Negative) 09/04/21 09/04/21 09/04/21 Range/Units 15:21 16:30 18:28 WBC (4.8-10.8) K/uL RBC (4.2-5.4) M/uL Hgb (12.0-16.0) g/dL Hct (37-47) % MCV (80-100) fL MCH (25-34) pg MCHC (32-36) g/dL RDW Std Deviation (36.4-46.3) fL RDW Coeff of Sissy (11.5-14.5) % Plt Count (130-400) K/uL MPV (7.4-10.4) fL Immature Gran % (Auto) % Neut % (Auto) % Lymph % (Auto) % [place] % (Auto) % Eos % (Auto) % Baso % (Auto) % Neut # (Auto) (1.4-6.5) K/uL Lymph # (Auto) (1.2-3.4) K/uL [place] # (Auto) (0.11-0.59) K/uL Eos # (Auto) (0-0.5) K/uL Baso # (Auto) (0-0.2) K/uL Immature Gran # (Auto) (0.00-0.02) K/uL Cord ABG pH (7.1-7.38) Cord ABG pCO2 (39.1-73.5) mmHg Cord ABG pO2 (4.1-31.7) mmHg Cord ABG HCO3 (19.7-28.5) mmol/L Cord ABG Base Excess (-9-1.8) mEq/L Cord ABG O2 Sat (<60) % Cord VBG pH (7.20-7.44) Cord VBG pCO2 (30.4-57.2) mmHg Cord VBG pO2 (14.1-43.3) mmHg Cord VBG HCO3 (18.4-26.8) mmol/L Cord VBG Base Excess (-7.7-1.9) mEq/L Cord VBG O2 Sat (<68) % Blood Gas Comments Sodium (136-145) mmol/L Potassium (3.5-5.1) mmol/L Chloride (98-107) mmol/L Carbon Dioxide (21-32) mmol/L Anion Gap (3-11) BUN (6-23) mg/dl Creatinine (0.6-1.2) mg/dl Est Cr Clr Drug Dosing ml/min Est GFR ( Amer) ml/min Est GFR (Non-Af Amer) ml/min BUN/Creatinine Ratio (10-20) Glucose (70-99(Fasting)) mg/dl POC Glucose 90 124 H 99 (70-99) mg/dl Calcium (8.5-10.1) mg/dl Total Bilirubin (0.2-1.0) mg/dl AST (13-39) U/L ALT (7-52) U/L Alkaline Phosphatase (34-104) U/L Total Protein (6.0-8.3) gm/dl Albumin (3.4-5.0) gm/dl Globulin (2.5-4.0) gm/dl Albumin/Globulin Ratio (0.9-2) Urine Color Urine Appearance (Clear) Urine pH (4.5-7.5) Ur Specific [place] (1.000-1.030) Urine Protein (Negative) Urine Glucose (UA) (Negative) Urine Ketones (Negative) Urine Blood (Negative) Urine Nitrite (Negative) Urine Bilirubin (Negative) Urine Urobilinogen (Negative) Ur Leukocyte Esterase (Negative) Urine WBC (Auto) (0-5) /hpf Urine RBC (Auto) (0-4) /hpf U Hyaline Cast (Auto) (0-5) /lpf U Epithel Cells (Auto) (0-5) /lpf Urine Bacteria (Auto) (Negative) 09/04/21 09/04/21 09/04/21 Range/Units 19:34 20:35 21:30 WBC (4.8-10.8) K/uL RBC (4.2-5.4) M/uL Hgb (12.0-16.0) g/dL Hct (37-47) % MCV (80-100) fL MCH (25-34) pg MCHC (32-36) g/dL RDW Std Deviation (36.4-46.3) fL RDW Coeff of Sissy (11.5-14.5) % Plt Count (130-400) K/uL MPV (7.4-10.4) fL Immature Gran % (Auto) % Neut % (Auto) % Lymph % (Auto) % [place] % (Auto) % Eos % (Auto) % Baso % (Auto) % Neut # (Auto) (1.4-6.5) K/uL Lymph # (Auto) (1.2-3.4) K/uL [place] # (Auto) (0.11-0.59) K/uL Eos # (Auto) (0-0.5) K/uL Baso # (Auto) (0-0.2) K/uL Immature Gran # (Auto) (0.00-0.02) K/uL Cord ABG pH (7.1-7.38) Cord ABG pCO2 (39.1-73.5) mmHg Cord ABG pO2 (4.1-31.7) mmHg Cord ABG HCO3 (19.7-28.5) mmol/L Cord ABG Base Excess (-9-1.8) mEq/L Cord ABG O2 Sat (<60) % Cord VBG pH (7.20-7.44) Cord VBG pCO2 (30.4-57.2) mmHg Cord VBG pO2 (14.1-43.3) mmHg Cord VBG HCO3 (18.4-26.8) mmol/L Cord VBG Base Excess (-7.7-1.9) mEq/L Cord VBG O2 Sat (<68) % Blood Gas Comments Sodium (136-145) mmol/L Potassium (3.5-5.1) mmol/L Chloride (98-107) mmol/L Carbon Dioxide (21-32) mmol/L Anion Gap (3-11) BUN (6-23) mg/dl Creatinine (0.6-1.2) mg/dl Est Cr Clr Drug Dosing ml/min Est GFR ( Amer) ml/min Est GFR (Non-Af Amer) ml/min BUN/Creatinine Ratio (10-20) Glucose (70-99(Fasting)) mg/dl POC Glucose 105 H 102 H 96 (70-99) mg/dl Calcium (8.5-10.1) mg/dl Total Bilirubin (0.2-1.0) mg/dl AST (13-39) U/L ALT (7-52) U/L Alkaline Phosphatase (34-104) U/L Total Protein (6.0-8.3) gm/dl Albumin (3.4-5.0) gm/dl Globulin (2.5-4.0) gm/dl Albumin/Globulin Ratio (0.9-2) Urine Color Urine Appearance (Clear) Urine pH (4.5-7.5) Ur Specific [place] (1.000-1.030) Urine Protein (Negative) Urine Glucose (UA) (Negative) Urine Ketones (Negative) Urine Blood (Negative) Urine Nitrite (Negative) Urine Bilirubin (Negative) Urine Urobilinogen (Negative) Ur Leukocyte Esterase (Negative) Urine WBC (Auto) (0-5) /hpf Urine RBC (Auto) (0-4) /hpf U Hyaline Cast (Auto) (0-5) /lpf U Epithel Cells (Auto) (0-5) /lpf Urine Bacteria (Auto) (Negative) 09/04/21 09/04/21 09/05/21 Range/Units 22:31 23:33 00:32 WBC (4.8-10.8) K/uL RBC (4.2-5.4) M/uL Hgb (12.0-16.0) g/dL Hct (37-47) % MCV (80-100) fL MCH (25-34) pg MCHC (32-36) g/dL RDW Std Deviation (36.4-46.3) fL RDW Coeff of Sissy (11.5-14.5) % Plt Count (130-400) K/uL MPV (7.4-10.4) fL Immature Gran % (Auto) % Neut % (Auto) % Lymph % (Auto) % [place] % (Auto) % Eos % (Auto) % Baso % (Auto) % Neut # (Auto) (1.4-6.5) K/uL Lymph # (Auto) (1.2-3.4) K/uL [place] # (Auto) (0.11-0.59) K/uL Eos # (Auto) (0-0.5) K/uL Baso # (Auto) (0-0.2) K/uL Immature Gran # (Auto) (0.00-0.02) K/uL Cord ABG pH (7.1-7.38) Cord ABG pCO2 (39.1-73.5) mmHg Cord ABG pO2 (4.1-31.7) mmHg Cord ABG HCO3 (19.7-28.5) mmol/L Cord ABG Base Excess (-9-1.8) mEq/L Cord ABG O2 Sat (<60) % Cord VBG pH (7.20-7.44) Cord VBG pCO2 (30.4-57.2) mmHg Cord VBG pO2 (14.1-43.3) mmHg Cord VBG HCO3 (18.4-26.8) mmol/L Cord VBG Base Excess (-7.7-1.9) mEq/L Cord VBG O2 Sat (<68) % Blood Gas Comments Sodium (136-145) mmol/L Potassium (3.5-5.1) mmol/L Chloride (98-107) mmol/L Carbon Dioxide (21-32) mmol/L Anion Gap (3-11) BUN (6-23) mg/dl Creatinine (0.6-1.2) mg/dl Est Cr Clr Drug Dosing ml/min Est GFR ( Amer) ml/min Est GFR (Non-Af Amer) ml/min BUN/Creatinine Ratio (10-20) Glucose (70-99(Fasting)) mg/dl POC Glucose 96 94 100 H (70-99) mg/dl Calcium (8.5-10.1) mg/dl Total Bilirubin (0.2-1.0) mg/dl AST (13-39) U/L ALT (7-52) U/L Alkaline Phosphatase (34-104) U/L Total Protein (6.0-8.3) gm/dl Albumin (3.4-5.0) gm/dl Globulin (2.5-4.0) gm/dl Albumin/Globulin Ratio (0.9-2) Urine Color Urine Appearance (Clear) Urine pH (4.5-7.5) Ur Specific [place] (1.000-1.030) Urine Protein (Negative) Urine Glucose (UA) (Negative) Urine Ketones (Negative) Urine Blood (Negative) Urine Nitrite (Negative) Urine Bilirubin (Negative) Urine Urobilinogen (Negative) Ur Leukocyte Esterase (Negative) Urine WBC (Auto) (0-5) /hpf Urine RBC (Auto) (0-4) /hpf U Hyaline Cast (Auto) (0-5) /lpf U Epithel Cells (Auto) (0-5) /lpf Urine Bacteria (Auto) (Negative) 09/05/21 09/05/21 09/06/21 Range/Units 01:07 01:07 05:42 WBC 11.01 H (4.8-10.8) K/uL RBC 4.17 L (4.2-5.4) M/uL Hgb 12.7 (12.0-16.0) g/dL Hct 38.1 (37-47) % MCV 91.4 (80-100) fL MCH 30.5 (25-34) pg MCHC 33.3 (32-36) g/dL RDW Std Deviation 45.4 (36.4-46.3) fL RDW Coeff of Sissy 13.8 (11.5-14.5) % Plt Count 271 (130-400) K/uL MPV 11.1 H (7.4-10.4) fL Immature Gran % (Auto) % Neut % (Auto) % Lymph % (Auto) % [place] % (Auto) % Eos % (Auto) % Baso % (Auto) % Neut # (Auto) (1.4-6.5) K/uL Lymph # (Auto) (1.2-3.4) K/uL [place] # (Auto) (0.11-0.59) K/uL Eos # (Auto) (0-0.5) K/uL Baso # (Auto) (0-0.2) K/uL Immature Gran # (Auto) (0.00-0.02) K/uL Cord ABG pH 7.26 (7.1-7.38) Cord ABG pCO2 58 (39.1-73.5) mmHg Cord ABG pO2 25 (4.1-31.7) mmHg Cord ABG HCO3 26 (19.7-28.5) mmol/L Cord ABG Base Excess -2.6 (-9-1.8) mEq/L Cord ABG O2 Sat < 60.0 (<60) % Cord VBG pH 7.32 (7.20-7.44) Cord VBG pCO2 47 (30.4-57.2) mmHg Cord VBG pO2 31 (14.1-43.3) mmHg Cord VBG HCO3 24 (18.4-26.8) mmol/L Cord VBG Base Excess -2.5 (-7.7-1.9) mEq/L Cord VBG O2 Sat 67.0 (<68) % Blood Gas Comments [facility]SON GOODSON Sodium (136-145) mmol/L Potassium (3.5-5.1) mmol/L Chloride (98-107) mmol/L Carbon Dioxide (21-32) mmol/L Anion Gap (3-11) BUN (6-23) mg/dl Creatinine (0.6-1.2) mg/dl Est Cr Clr Drug Dosing ml/min Est GFR ( Amer) ml/min Est GFR (Non-Af Amer) ml/min BUN/Creatinine Ratio (10-20) Glucose (70-99(Fasting)) mg/dl POC Glucose (70-99) mg/dl Calcium (8.5-10.1) mg/dl Total Bilirubin (0.2-1.0) mg/dl AST (13-39) U/L ALT (7-52) U/L Alkaline Phosphatase (34-104) U/L Total Protein (6.0-8.3) gm/dl Albumin (3.4-5.0) gm/dl Globulin (2.5-4.0) gm/dl Albumin/Globulin Ratio (0.9-2) Urine Color Urine Appearance (Clear) Urine pH (4.5-7.5) Ur Specific [place] (1.000-1.030) Urine Protein (Negative) Urine Glucose (UA) (Negative) Urine Ketones (Negative) Urine Blood (Negative) Urine Nitrite (Negative) Urine Bilirubin (Negative) Urine Urobilinogen (Negative) Ur Leukocyte Esterase (Negative) Urine WBC (Auto) (0-5) /hpf Urine RBC (Auto) (0-4) /hpf U Hyaline Cast (Auto) (0-5) /lpf U Epithel Cells (Auto) (0-5) /lpf Urine Bacteria (Auto) (Negative) PE: General: Alert, orientedx3, NAD Abd: soft, NT, fundus firm, below Umbilicus Perineum intact, Lochia rubra minimal Ext; NT, no edema AP: 36 yo s/p , IOL for GHT for severe range BP's, ppd# 1 VSS Afebrile doing well Bp controlled on Labetalol and Nifedipine Continue routine care Desires d/c today All questions were answered D/C home , f/u in office. Results & Data ([facility]) Vital Signs (Past 12 Hours) Vital Signs Temp Pulse Resp BP BP 09/06/21 00:20 145/80 H 09/05/21 23:15 36.6 C 61 18 175/95 H
[2021-09-06] MEDS: DOCUSATE SODIUM 100 MG CAP PO SCH (08:35)
[2021-09-06] MEDS: PRENATAL VITAMIN 1 TAB PO SCH (08:35)
[2021-09-06] MEDS: LABETALOL HCL 100 MG TAB PO SCH (08:35)
[2021-09-06] MEDS ORDERED: MEASLES, MUMPS & RUBELLA VIRUS VIAL SQ ONE (10:12)
[2021-09-06] MEDS ORDERED: bisacodyL 5 MG TABEC PO SCH (20:00)
== END 2021-09-06 13:00 | disposition home or self-care (01) | DRG 807 ==
LOC: OPB 15:49 → 4S1 15:50 → 4S2 09-05 15:18 → 4S1 09-05 15:28 → 4S2 09-05 16:19